=== PATIENT | male | born 1980 | race Two or more races ===

== ENCOUNTER → 2024-08-08 | Outpatient (CLI) | payer BC, SELFPAY ==
[2024-08-08 08:32] LABS: Basophils # (Auto) 0.1 Thou/mm3 (0.0-0.2); Basophils % (Auto) 1 % (0-2.5); Eosinophils # (Auto) 1.2 Thou/mm3 (0.0-0.5); Eosinophils % (Auto) 18 % (0-10); Hematocrit 40.5 % (41.0-53.0); Hemoglobin 14.5 g/dL (13.5-16.0); Immature Granulocytes % (Auto) 1 % (0-0); Immature Granulocytes Auto 0.04 Thou/mm3 (0.00-0.00); Lymphocytes # (Auto) 1.6 Thou/mm3 (1.0-4.8); Lymphocytes % (Auto) 24 % (10-50); Mean Corpuscular HGB Conc 35.8 g/dl (31.0-37.0); Mean Corpuscular Hemoglobin 31.9 pg (25.0-35.0); Mean Corpuscular Volume 89 fL (80-100); Monocytes # (Auto) 0.8 Thou/mm3 (0.0-0.8); Monocytes % (Auto) 12 % (0-12); Neutrophils % (Auto) 45 % (37-80); Nucleated Red Blood Cell % 0 /100 WBC (0); Platelet Count 303 Thou/mm3 (140-440); RDW Standard Deviation 37.7 fL (35.1-43.9); Red Blood Count 4.54 Miln/mm3 (4.50-5.90); White Blood Count 6.6 Thou/mm3 (3.8-10.6)
[2024-08-08 08:47] LABS: Prostate Specific Antigen 0.95 ng/mL (0-4.00)
[2024-08-08 08:50] LABS: Creatinine MALB Rnd Ur 79 mg/dL (30-125); Microalbumin Creat Ratio 11 mg/gCrea (<30); Microalbumin, Random Urine 9 mg/L (0-300)
[2024-08-08 08:50] LABS: Vitamin D 25 Hydroxy Total 27.1 ng/mL (7.3-40.2)
[2024-08-08 10:42] LABS: Alanine Aminotransferase 25 U/L (10-49); Albumin, Serum 4.3 gm/dL (3.5-5.0); Albumin/Globulin Ratio 1.7 (1.2-2.2); Alkaline Phosphatase 94 U/L (46-116); Anion Gap 8 (7-16); Aspartate Amino Transferase 16 U/L (0-34); BUN/Creatinine Ratio 18 Ratio (12-20); Bilirubin,Total 0.4 mg/dL (0.3-1.2); Blood Urea Nitrogen 18 mg/dL (9-23); Calcium 8.6 mg/dL (8.3-10.6); Calcium (Corrected) 8.6 mg/dL (8.5-10.1); Carbon Dioxide 27.1 mMol/L (20.0-31.0); Chloride 104 mMol/L (98-107); Globulin 2.5 gm/dL (2.3-3.5); Glucose 106 mg/dL (74-106); Osmolality,Calculated 279 (275-295); Potassium 3.5 mMol/L (3.4-5.1); Sodium 139 mMol/L (136-145); Thyroid Stimulating Hormone 1.76 uIU/mL (0.55-4.78); Total Protein 6.8 gm/dL (5.7-8.2); eGFR > 60 See Note
[2024-08-08 10:53] LABS: Glucose Estimated Average 103 mg/dL (80-131); Hemoglobin A1C 5.2 % Hgb (4.8-6.0)
[2024-08-08 11:07] LABS: Cardiac Risk Estimate 3.9 RATIO (4.0-6.7); Cholesterol 129 mg/dL (132-200); HDL Cholesterol 33 mg/dL (40-60); LDL Cholesterol,Calculated 78 mg/dL (0-130); Triglycerides 88 mg/dL (30-150)
[2024-08-12 07:06] LABS: Thyroid Peroxidase Antibodies* 18 IU/mL (<9)
== END | disposition home or self-care (01) ==
LOC: COPL 06:54
PROVIDERS: PCP Family Medicine; Referring Provider Nurse Practitioner Family; Visit Provider Nurse Practitioner Family
DX: R53.83 Other fatigue (principal); R78.5 Finding of other psychotropic drug in blood; E55.9 Vitamin D deficiency, unspecified; N20.0 Calculus of kidney
CPT/HCPCS: 36415; 80053; 80061; 82043; 82306; 82570; 83036; 84153; 84436; 84443; 85025; 86376

== ENCOUNTER → 2024-08-14 | Outpatient (CLI) | payer BC, SELFPAY ==
[2024-08-19 07:27] LABS: Fecal Globin Result NOT DETECTED (NOT DETECTED)
== END | disposition home or self-care (01) ==
LOC: SLDO 14:16
PROVIDERS: PCP Family Medicine; Referring Provider Nurse Practitioner Family; Visit Provider Nurse Practitioner Family
DX: Z12.11 Encounter for screening for malignant neoplasm of colon (principal)
CPT/HCPCS: 82274; G0328

== ENCOUNTER → 2024-08-16 | Outpatient (CLI) | payer BC, SELFPAY ==
--- NOTE | 2024-08-16 14:00 | XR_ITS ---
Examination: Retroperitoneal ultrasound, complete Technique: Multiple high resolution grayscale images of the retroperitoneum obtained, including kidneys and bladder. Exam date and time:August 16, 2024 12:58 PM INDICATIONS: Left flank pain beginning one month ago FINDINGS: Right kidney 10.8 cm cortex 2.2 cm Left kidney 11.8 cm cortex 1.8 cm Mild renal parenchymal scar formation Contracted urinary bladder, suspicious for mass in the bladder 2.3 x 0.8 x 0.9 cm Prostate 4.0 x 4.3 x 4.9 cm with solid mass 2.2 x 1.9 x 2.5 cm and calcification IMPRESSION: Recommend CT scan abdomen pelvis with delayed bladder images post contrast to confirm mass in the urinary bladder 2.3 x 0.8 x 0.9 cm Recommend transrectal prostate sonography follow-up to confirm prostate nodule
== END | disposition home or self-care (01) ==
LOC: CDIM 12:12
PROVIDERS: PCP Nurse Practitioner Family; Referring Provider Nurse Practitioner Family; Visit Provider Nurse Practitioner Family
DX: R10.9 Unspecified abdominal pain (principal)
CPT/HCPCS: 76770

== ENCOUNTER → 2024-10-15 | Outpatient (CLI) | payer BC, SELFPAY | END | disposition home or self-care (01) | LOC: SLDO 14:05 | PROVIDERS: Referring Provider Nurse Practitioner Family; Visit Provider Nurse Practitioner Family | DX: N30.01 Acute cystitis with hematuria (principal) | CPT/HCPCS: 87086 ==

== ENCOUNTER → 2024-11-05 | Outpatient (CLI) | payer BC, SELFPAY ==
--- NOTE | 2024-11-05 10:15 | XR_ITS ---
Examination: Transrectal prostate sonography TECHNIQUE: Kay scale sonographic images prostate Date and time: November 05, 2024 10:10 AM INDICATIONS: Difficulty urinating beginning one year ago FINDINGS: Prostate volume 29 cc Multiple small calcifications no solid nodules noted IMPRESSION: Moderate prostatomegaly, no prostate nodules
== END | disposition home or self-care (01) ==
PROVIDERS: PCP Nurse Practitioner Family; Referring Provider Nurse Practitioner Family; Visit Provider Nurse Practitioner Family
DX: N40.0 Benign prostatic hyperplasia without lower urinary tract symptoms (principal)
CPT/HCPCS: 76872

== ENCOUNTER → 2024-11-12 | Outpatient (CLI) | payer BC, SELFPAY ==
[2024-11-12 11:58] LABS: Alanine Aminotransferase 54 U/L (10-49); Albumin, Serum 4.5 gm/dL (3.5-5.0); Albumin/Globulin Ratio 1.7 (1.2-2.2); Alkaline Phosphatase 98 U/L (46-116); Anion Gap 10 (7-16); Aspartate Amino Transferase 24 U/L (0-34); BUN/Creatinine Ratio 10 Ratio (12-20); Bilirubin,Total 0.6 mg/dL (0.3-1.2); Blood Urea Nitrogen 9 mg/dL (9-23); Calcium 9.2 mg/dL (8.3-10.6); Calcium (Corrected) 9.2 mg/dL (8.5-10.1); Carbon Dioxide 27.9 mMol/L (20.0-31.0); Chloride 104 mMol/L (98-107); Creatinine (Component) 0.9 mg/dL (0.6-1.3); Globulin 2.6 gm/dL (2.3-3.5); Glucose 108 mg/dL (74-106); Osmolality,Calculated 282 (275-295); Potassium 4.1 mMol/L (3.4-5.1); Sodium 142 mMol/L (136-145); Total Protein 7.1 gm/dL (5.7-8.2); eGFR > 60 See Note
== END | disposition home or self-care (01) ==
LOC: COPL 09:32
PROVIDERS: PCP Nurse Practitioner Family; Referring Provider Nurse Practitioner Family; Visit Provider Nurse Practitioner Family
DX: D29.1 Benign neoplasm of prostate (principal); D30.3 Benign neoplasm of bladder; I10 Essential (primary) hypertension; N20.0 Calculus of kidney
CPT/HCPCS: 36415; 80053

== ENCOUNTER → 2024-12-02 | Outpatient (CLI) | payer BC, SELFPAY ==
--- NOTE | 2024-12-02 14:00 | XR_ITS ---
Examination: CT abdomen with intravenous contrast CT pelvis with intravenous contrast 2-D coronal reconstructions 2-D sagittal reconstructions Date and time of exam:December 02, 2024 1410 hours INDICATIONS: Diagnosis benign neoplasm bladder right flank and testicular pain this week. CTDI: vol (mGy) 19.8 DLP: (mGycm) 781 Technique: Multiple axial sections of the abdomen and pelvis have been obtained. 64 slice high-resolution scanner used. 3 mm axial sections have been obtained, post intravenous injection 60 cc [id number] 2-D sagittal, coronal reconstructions obtained. Low dose protocols were performed. One or more of the following dose reduction techniques were used; automated exposure control, adjustment of the mA and/or KV according to patient size, use of iterative reconstruction technique. Findings: No focal liver or splenic lesion No gallstones No pancreatic or adrenal mass Mild renal scar formation No renal calculi, no hydronephrosis, however there appears to be a 5 mm distal right ureteral calculus Urinary bladder intact No prostatomegaly Aorta normal size Absent appendix No bowel obstruction impression: No renal calculi. No hydronephrosis Suspicious for 5 mm distal right ureteral calculus, clinical correlation advised
== END | disposition home or self-care (01) ==
LOC: CCTX 13:38
PROVIDERS: PCP Nurse Practitioner Family; Referring Provider Nurse Practitioner Family; Visit Provider Nurse Practitioner Family
DX: N28.9 Disorder of kidney and ureter, unspecified (principal)
CPT/HCPCS: 74177; A4649; Q9967

== ENCOUNTER → 2024-12-19 | Outpatient (BNVA) | payer BC, SELFPAY | END | disposition home or self-care (01) | PROVIDERS: PCP Family Medicine; Referring Provider Family Medicine; Visit Provider Urology | DX: N20.1 Calculus of ureter (principal); N40.1 Benign prostatic hyperplasia with lower urinary tract symptoms; N13.8 Other obstructive and reflux uropathy; E66.9 Obesity, unspecified; Z68.33 Body mass index [BMI] 33.0-33.9, adult | CPT/HCPCS: 81003; 99212; G0463 ==